=== PATIENT | female | born 1945 | race Caucasian/White ===

== ENCOUNTER 2020-06-07 09:08 | Emergency (ER) | payer MEDICARE, BC ==
[~2020-06-07] VITALS: Ht 165.1 cm; Wt 80.7 kg
[2020-06-07 09:58] LABS: EOSINOPHILS % (AUTO) 1.2 % (0.0-7.0); HEMATOCRIT 41.1 % (31.2-41.9); HEMOGLOBIN 13.8 g/dL (10.9-14.3); LYMPHOCYTES % (AUTO) 35.6 % (20.5-51.5); MEAN CORPUSCULAR HEMOGLOBIN 28.8 uug (24.7-32.8); MEAN CORPUSCULAR HGB CONC 34 g/dL (32.3-35.6); MEAN CORPUSCULAR VOLUME 85.7 fL (75.5-95.3); MONOCYTES # (AUTO) 0.4 K/uL (2.0-10.0); MONOCYTES % (AUTO) 13.8 % (0.0-11.0); NEUTROPHILS # (AUTO) 1.3 K/uL (1.8-8.9); NEUTROPHILS % (AUTO) 48.4 % (38.5-71.5); PLATELET COUNT (AUTO) 142 K/uL (179-408); RED BLOOD CELL COUNT(AUTO) 4.79 MIL/uL (3.63-4.92); WHITE BLOOD COUNT (AUTO) 2.8 K/uL (3.8-11.8)
[2020-06-07] MEDS ORDERED: diphenhydrAMINE 50 MG/1 ML VIAL ONE (09:58)
[2020-06-07] MEDS ORDERED: METOCLOPRAMIDE HCL 10 MG/2 ML VIAL ONE (09:59)
[2020-06-07] MEDS ORDERED: ACETAMINOPHEN ES 500 MG TABLET ONE (09:59)
[2020-06-07] MEDS ORDERED: ACETAMINOPHEN ES 500 MG TABLET PO ONE (10:00)
[2020-06-07] MEDS ORDERED: METOCLOPRAMIDE HCL 10 MG/2 ML VIAL IV ONE (10:00)
[2020-06-07] MEDS ORDERED: IV NORMAL SALINE 1000 ML BAG IV ONE (10:00)
[2020-06-07] MEDS ORDERED: diphenhydrAMINE 50 MG/1 ML VIAL IV ONE (10:00)
[2020-06-07 10:08] LABS: CREATININE 0.8 mg/dL (0.6-1.3); POTASSIUM 4.6 mmol/L (3.5-5.1)
[2020-06-07 10:14] LABS: BILIRUBIN,DIRECT 0.1 mg/dL (0.0-0.2); BILIRUBIN,TOTAL 0.3 mg/dL (0.2-1.0); TOTAL PROTEIN, SERUM 6.9 g/dL (6.4-8.2)
[2020-06-07 10:19] LABS: MAGNESIUM 2.1 mg/dL (1.8-2.4); PHOSPHOROUS 3.6 mg/dL (2.5-4.9)
--- NOTE | 2020-06-07 10:23 | NUR ---
Patient here for headaches and generalized muscle pain. 12 lead EKG done, shown to Dr hansen right away. Covid swab done. Patient asked if she can call her son who is a doctor before I place the IV and after she hung up with him stated she does not want the IV and that she can drink water and Tylenol is all she wants. Dr Hansen notified.
[2020-06-07 10:37] LABS: THYROID STIMULATING HORMONE 0.67 mIU/mL (0.358-3.740)
--- NOTE | 2020-06-07 10:57 | NUR ---
Awaiting test results. patient denies chest pain or SOB.
--- NOTE | 2020-06-07 11:05 | NUR ---
Urine sent to lab
[2020-06-07 11:09] LABS: *BILIRUBIN,URIN NEGATIVE (NEGATIVE); *BLOOD, URINE NEGATIVE (NEGATIVE); *CLARITY,URINE SLIGHTLY CLOUDY (CLEAR); *COLOR,URINE YELLOW (YELLOW); *KETONES,URINE NEGATIVE (NEGATIVE); LEUKOCYTE ESTERASE ,URINE NEGATIVE (NEGATIVE); NITRITE, URINE NEGATIVE (NEGATIVE); PH,URINE 8.5 (5.0-8.0); UGLUCOSE NEGATIVE (NEGATIVE)
--- NOTE | 2020-06-07 11:11 | NUR ---
DC AND FOLLOW UP INSTRUCTIONS GIVEN AND EXPLAINED TO PATIENT WHO STATES SHE UNDERSTANDS ALL INSTRUCTIONS.
[2020-06-07 13:50] LABS: BACTERIA,URINE FEW /HPF (NONE SEEN); RBC,URINE NONE SEEN /HPF (0-3); SQUAMOUS EPITHELIAL CELL,UR FEW /HPF (NONE SEEN); WBC,URINE 0-3 /HPF (0-3)
== END 2020-06-07 11:12 | disposition home or self-care (01) ==
LOC: ER 09:08
DX: U07.1 COVID-19 (principal); M79.10 Myalgia, unspecified site; R51.9 Headache, unspecified; R11.0 Nausea; F41.9 Anxiety disorder, unspecified; R94.31 Abnormal electrocardiogram [ECG] [EKG]
CPT/HCPCS: 36415; 70030-TC; 71045; 83615; 83690; 83735; 84100; 84443; 85025; 86140; 93005; A4663; A9150; J1200; J2765